=== PATIENT | female | born 1990 | race Caucasian/White ===

== ENCOUNTER 2025-06-15 13:04 | Outpatient (CLI) | payer BC, SELFPAY ==
--- NOTE | 2025-06-15 13:00 | CRLHL7_ITS ---
For Patients: As a result of the Cures Act, medical imaging exams and procedure reports are released immediately into your electronic medical record. You may view this report before your referring provider. If you have questions, please contact your health care provider. OB ULTRASOUND INDICATION: Dating. TECHNIQUE: Real time grayscale imaging of the fetus was performed. Transvaginal. Transvaginal imaging performed to better demonstrate the endometrium and ovaries. LMP: 04/13/2025. RICHA by LMP: 01/18/2026. GA: 9 w, 0 d. Previous US: No. CRL: 2.5 cm. 9 w 2 d. RICHA: 01/16/2026. FHR: 173 BPM. Gestational sac: 4.0 cm. Appears within normal limits. Yolk sac: 4.3 mm. Appears within normal limits. Right ovary: Within normal limits. 3.0 x 2.7 x 2.4 cm. CL. Left ovary: Within normal limits. 2.8 x 1.9 x 1.1 cm. IMPRESSION: 1. Sonographic gestational age 9 weeks 2 days and sonographic due date 01/16/2026. 2. Subchorionic hemorrhage measures 1.6 x 0.7 x 2.2 cm. Jostin Palacio M.D. Diagnostic Radiologist [email or web address] MIKE/[email or web address] raymond/Dictated by: Jostin Palacio MD @ 06/15/2025 3:43:00 PM (Electronically Signed)
== END 2025-06-15 13:05 | disposition home or self-care (01) ==
LOC: US 13:05
PROVIDERS: PCP Family Medicine; Visit Provider Registered Nurse
DX: Z34.91 Encounter for supervision of normal pregnancy, unspecified, first trimester (principal); O20.9 Hemorrhage in early pregnancy, unspecified; Z3A.09 9 weeks gestation of pregnancy
CPT/HCPCS: 76817

== ENCOUNTER 2025-06-17 11:22 | Outpatient (CLI) | payer BC, SELFPAY ==
[2025-06-17 23:21] LABS: Chlamydia DNA Amplified* NOT DETECTED (No Detected); GC DNA Amplified* NOT DETECTED (No Detected)
== END 2025-06-17 11:23 | disposition home or self-care (01) ==
PROVIDERS: PCP Family Medicine; Visit Provider Registered Nurse
DX: Z34.91 Encounter for supervision of normal pregnancy, unspecified, first trimester (principal); E04.1 Nontoxic single thyroid nodule; Z3A.09 9 weeks gestation of pregnancy
CPT/HCPCS: 83020; 83021; 84439; 84443; 85660; 86592; 86703; 86704; 86706; 86762; 86787; 86803; 86850; 86900; 86901; 87086; 87340; 87491; 87591

== ENCOUNTER 2025-06-28 07:17 | Outpatient (CLI) | payer BC, SELFPAY ==
--- NOTE | 2025-06-28 07:15 | CRLHL7_ITS ---
For Patients: As a result of the Century Cures Act, medical imaging exams and procedure reports are released immediately into your electronic medical record. You may view this report before your referring provider. If you have questions, please contact your health care provider. INDICATION: nontoxic goiter COMPARISON: none TECHNIQUE: Parikh scale and color Doppler images were acquired of the thyroid gland. FINDINGS: Isthmus measures 2.6 millimeters. Solid and cystic nodule left thyroid lobe measures 2.9 x 2.3 x 2.2 cm, TR 3. Cystic nodule right thyroid lobe measures 8 x 4 x 5 millimeters, TR 2. The right lobe measures 6.1 x 1.8 x 1.8 cm and the left lobe measures 5.6 x 2.1 x 2.5 cm in size. The color Doppler images demonstrate normal vascularity. There is no evidence of cervical lymphadenopathy or parathyroid mass. IMPRESSION: 2.9 cm TR 3 nodule left thyroid lobe. FNA recommended. Dictated by Jostin Palacio MD @ 06/28/2025 12:36:36 PM (Electronically Signed)
== END 2025-06-28 07:18 | disposition home or self-care (01) ==
LOC: US 07:19
PROVIDERS: PCP Family Medicine; Visit Provider Registered Nurse
DX: E04.9 Nontoxic goiter, unspecified (principal)
CPT/HCPCS: 76536

== ENCOUNTER 2025-07-07 08:01 | Outpatient (CLI) | payer BC, SELFPAY ==
--- NOTE | 2025-07-07 08:15 | CRLHL7_ITS ---
For Patients: As a result of the Century Cures Act, medical imaging exams and procedure reports are released immediately into your electronic medical record. You may view this report before your referring provider. If you have questions, please contact your health care provider. PROCEDURE PERFORMED: Left thyroid FNA for thyroid nodule. INDICATION: Left thyroid nodule. FINDINGS: Left 2.9 centimeter TI-RADS 3 cystic thyroid nodule recommend FNA PROCEDURE: The risks and benefits of the procedure were explained to the patient and questions were answered. Consent was obtained. The skin was prepped in the usual sterile fashion. Under ultrasound guidance, 6 passes of the mass were performed with 25-gauge needles. Please note that 3 cc of serous colored cystic fluid center pathology for further analysis. The specimens were collected and sent to the lab for further analysis. The patient tolerated the procedure well without complications. Wound care was discussed with the patient and the patient was instructed to watch for signs of bleeding and infection after discharge. The patient will call a primary care physician if any problems develop. POST-PROCEDURE DIAGNOSIS: Status post left thyroid FNA for thyroid nodule. MEDICATIONS GIVEN: Lidocaine for local anesthesia. SPECIMEN(S): Six specimens collected and sent to lab for further analysis. 3 cc of serous colored cystic fluid center pathology for further analysis COMPLICATIONS: No complications noted. DRAINS: None. ESTIMATED BLOOD LOSS: Less than 10 cc. PHYSICIAN(S) AND ASSISTANTS (if any): JULIUS Meza Please call with questions. JULIUS Meza ADDITIONAL COMMENTS: Ultrasound was utilized following FNA procedure shows no signs of extravasation, hematoma, active bleeding. [place] Protocol A. Pre-procedure verification complete: Yes 1-relevant information / documentation available, reviewed and properly matched to the patient; 2-consent accurate and complete, 3-equipment and supplies available. B. Site marking complete: Yes Site marked if not in continuous attendance with patient. C. TIME OUT completed: Yes Time Out was conducted just prior to starting procedure to verify the eight required elements: 1-patient identity, 2-consent accurate and complete, 3-position, 4-correct side/site marked (if applicable), 5-procedure, 6-relevant images / results properly labeled and displayed (if applicable), 7-antibiotics / irrigation fluids (if applicable), 8-safety precautions. Dictated by Riccardo Shelton MD @ 07/07/2025 9:15:27 AM (Electronically Signed)
== END 2025-07-07 08:02 | disposition home or self-care (01) ==
LOC: US 08:03
PROVIDERS: PCP Family Medicine; Visit Provider Registered Nurse
DX: E04.1 Nontoxic single thyroid nodule (principal); C73 Malignant neoplasm of thyroid gland
CPT/HCPCS: 10005; 76942

== ENCOUNTER 2025-08-04 10:20 | Outpatient (CLI) | payer BC, SELFPAY | END 2025-08-04 10:21 | disposition home or self-care (01) | LOC: LKVREF 10:20 | PROVIDERS: PCP Family Medicine; Visit Provider Advanced Practice Midwife | DX: C73 Malignant neoplasm of thyroid gland (principal); E04.1 Nontoxic single thyroid nodule; Z34.82 Encounter for supervision of other normal pregnancy, second trimester | CPT/HCPCS: 84443 ==

== ENCOUNTER 2025-09-02 07:12 | Outpatient (CLI) | payer BC, SELFPAY ==
--- NOTE | 2025-09-02 07:15 | CRLHL7_ITS ---
For Patients: As a result of the Century Cures Act, medical imaging exams and procedure reports are released immediately into your electronic medical record. You may view this report before your referring provider. If you have questions, please contact your health care provider. INDICATION: survey TECHNIQUE: Conventional transabdominal two-dimensional grayscale ultrasound examination COMPARISON: 06/15/2025 FINDINGS: There is a living fetus with gestational age of 20 weeks 1 day by LMP and 20 weeks 4 days by today`s measurements. EDC based on LMP is 01/19/2026. BPD: 4.9 cm, 20 weeks 6 days Head circumference: 18.1 cm, 20 weeks 3 days Abdominal circumference: 14.9 cm, 20 weeks 1 day Femur length: 3.3 cm, 20 weeks 2 days HC/AC: 1.21 The weight is estimated at 343 grams, the 53rd percentile. The heart rate is measured at 150 beats per minute and the rhythm appears regular. The head and spine are grossly intact. No gross facial abnormality is evident. The facial profile is suboptimally visualized due to lie. The upper lip is intact. The heart is suboptimally visualized due to lie. The heart and stomach appear to be on the same side. The diaphragm is intact. Two kidneys and a bladder are demonstrated. The cord insertion is suboptimally visualized due to lie. Three cord vessels are noted. A nuchal cord is noted. Four extremities are demonstrated. The amniotic fluid volume is within normal limits. The placenta is anterior with no evidence of previa. The cervical length is normal at 3.7 cm. IMPRESSION: 1. Living fetus with gestational age of 20 weeks 1 day by LMP and 20 weeks 4 days by today`s measurements. EDC based on LMP is 01/19/2026. 2. No anomaly evident. Facial profile, heart and cord insertion suboptimally visualized due to lie. Limited follow up recommended. 3. Nuchal cord noted. Dictated by José Manuel Dunn MD @ 09/02/2025 11:08:09 AM (Electronically Signed)
== END 2025-09-02 07:13 | disposition home or self-care (01) ==
LOC: US 07:13
PROVIDERS: PCP Family Medicine; Visit Provider Midwife
DX: Z34.82 Encounter for supervision of other normal pregnancy, second trimester (principal); Z3A.20 20 weeks gestation of pregnancy
CPT/HCPCS: 76805

== ENCOUNTER 2025-09-14 10:34 | Outpatient (CLI) | payer BC, SELFPAY ==
--- NOTE | 2025-09-14 10:40 | CRLHL7_ITS ---
For Patients: As a result of the Century Cures Act, medical imaging exams and procedure reports are released immediately into your electronic medical record. You may view this report before your referring provider. If you have questions, please contact your health care provider. OBSTETRICAL ULTRASOUND ??? FOLLOW-UP INDICATION: Follow-up anatomy survey, missed anatomy. CLINICAL HISTORY: RICHA by LMP: 01/19/2026 Gestational Age: 21 weeks 6 days COMPARISON: 09/02/2025, 06/15/2025. TECHNIQUE: Real-time solo-scale transabdominal imaging of the fetus was performed. FINDINGS: Fetus: Single Cervix: Visualized transabdominal, 4.3 cm positioning: Transverse, maternal right Amniotic Fluid: 5 cm SDP Placenta technique: Transabdominal Placenta position: Anterior heart rate: 145 bpm IMPRESSION: Normal heart, profile and abdominal cord insertion. Normal heart views include the 4-chamber view, LVOT, RVOT, 3-vessel trachea view and 3-vessel view. JOSTIN BURGESS M.D. Diagnostic Radiologist [email or web address] Transcribed: 12:[address]/Dictated by: Jostin Burgess MD @ 09/14/2025 11:28:00 AM (Electronically Signed)
== END 2025-09-14 10:35 | disposition home or self-care (01) ==
PROVIDERS: PCP Family Medicine; Visit Provider Advanced Practice Midwife
DX: Z36.2 Encounter for other antenatal screening follow-up (principal); Z3A.21 21 weeks gestation of pregnancy
CPT/HCPCS: 76816

== ENCOUNTER 2025-09-29 14:31 | Outpatient (CLI) | payer BC, SELFPAY | END 2025-09-29 14:32 | disposition home or self-care (01) | LOC: NFLDREF 14:33 | PROVIDERS: PCP Family Medicine; Visit Provider Advanced Practice Midwife | DX: C73 Malignant neoplasm of thyroid gland (principal) | CPT/HCPCS: 84443 ==